=== PATIENT | male | born 1990 | race Two or more races ===

== ENCOUNTER 2023-08-25 20:48 | Emergency (ER) | payer SELFPAY ==
[2023-08-25] MEDS: Lidocaine 1% 5 ML VIAL INJECT ONE (22:57)
== END 2023-08-25 23:25 | disposition home or self-care (01) ==
LOC: JP.ED 20:48
DX: S02.2XXA Fracture of nasal bones, initial encounter for closed fracture (principal); S01.512A Laceration without foreign body of oral cavity, initial encounter; Z86.16 Personal history of COVID-19; W22.8XXA Striking against or struck by other objects, initial encounter; Y93.52 Activity, horseback riding
CPT/HCPCS: 12011; 70486; 99283